=== PATIENT | female | born 1975 | race Caucasian/White ===

== ENCOUNTER 2017-02-15 06:56 | Day surgery (SDC) | payer BC ==
[~2017-02-15 06:56] MED LIST: Lactated Ringers 1,000 ML IV SCH
[2017-02-15] MEDS ORDERED: Propofol 200 MG/20 ML SDV ONE (07:24)
[2017-02-15] MEDS ORDERED: Lidocaine 2% 5 ML SDV ONE (07:24)
[2017-02-15] MEDS ORDERED: fentaNYL 100 MCG/2 ML SDV ONE (07:24)
[2017-02-15] MEDS ORDERED: Midazolam 1 MG/ML 2 ML SDV ONE (07:24)
--- NOTE | 2017-02-15 07:25 | PCM.PREANE ---
Preanesthetic Assessment - Anesthesia/Transfusion/Family Hx Anesthesia History: Prior Anesthesia Without Reaction Family History of Anesthesia Reaction: No Transfusion History: No Prior Transfusion(s) Intubation History: Unknown - Review of Systems General: No Symptoms Pulmonary: No Symptoms Cardiovascular: No Symptoms Gastrointestinal: Other (GERD) Neurological: No Symptoms Other: Reports: None - Physical Assessment Height: 1.52 m Weight: 114.305 kg ASA Class: 2 Mental Status: Alert & Oriented x3 Airway Class: Mallampati = 3 Dentition: Reports: Normal Dentition Thyro-Mental Finger Breadths: 2 Mouth Opening Finger Breadths: 3 ROM/Head Extension: Full Lungs: Clear to Auscultation, Normal Respiratory Effort Cardiovascular: Regular Rate, Regular Rhythm - Lab Values: Laboratory Last Values Urine HCG, Qual NEGATIVE (NEGATIVE) 02/15/17 06:57 - Allergies Allergies/Adverse Reactions: Allergies Allergy/AdvReac Type Severity Reaction Status Date / Time Penicillins Allergy Hives Verified 12/04/13 08:49 - Blood Blood Available: No - Anesthesia Plan Pre-Op Medication Ordered: None - Acknowledgements Anesthesia Type Planned: MAC Pt an Appropriate Candidate for the Planned Anesthesia: Yes Alternatives and Risks of Anesthesia Discussed w Pt/Guardian: Yes Pt/Guardian Understands and Agrees with Anesthesia Plan: Yes PreAnesthesia Questionnaire HEENT History: Reports: None Respiratory History: Reports: Asthma, Other (See Below) Other Respiratory History: "cold induced asthma" Gastrointestinal History: Reports: GERD, Other (See Below) (h/o gastric ulcer) Genitourinary History: Reports: None 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: Reports: Polycystic Ovaries Psychiatric History: Reports: Anxiety, Depression Endocrine/Metabolic History: Reports: Hypothyroidism, Obesity/BMI 30+ - Past Surgical History Head Surgeries/Procedures: Reports: None HEENT Surgical History: Reports: Tonsillectomy GI Surgical History: Reports: Cholecystectomy, EGD (long time ago) Female Surgical History: Reports: D&C - SUBSTANCE USE Smoking Status *Q: Never Smoker Recreational Drug Use History: No - HOME MEDS Home Medications: Home Meds Albuterol/Ipratropium [Take Home: Albuterol/Ipratropium 4 GM Inhaler] 1 - 2 puff INH ASDIRECTED PRN 02/12/17 [History] Levothyroxine Sodium [Unithroid] 50 mcg PO DAILY 02/12/17 [History] Omeprazole 40 mg PO DAILY 02/12/17 [History] buPROPion HCl [Wellbutrin Xl] 300 mg PO DAILY 02/12/17 [History] metFORMIN HCl [Metformin HCl ER] 500 mg PO DAILY 02/12/17 [History] - CURRENT (IN HOUSE) MEDS Current Meds: Current Medications Lactated Ringer's (Ringers, Lactated) 1,000 mls @ 125 mls/hr IV ASDIRECTED PARDEEP
--- NOTE | 2017-02-15 07:58 | PCM.OPNOTE ---
- General Post-Op/Procedure Note Date of Surgery/Procedure: 02/15/17 Operative Procedure(s): Esophagogastroduodenoscopy w/ duodenal and gastric biopsies Pre Op Diagnosis: Persistent epigastric pain with progressive GERD. Hx peptic ulcers Post-Op Diagnosis: Moderate acute gastritis Anesthesia Technique: MAC (ASA II) Primary Surgeon: Marvel Duque Condition: Good Free Text/Narrative:: Dictation [id number] CPT CODE 35840
[2017-02-15] MEDS ORDERED: Lactated Ringers 1,000 ML IV SCH (08:00)
--- NOTE | 2017-02-15 08:02 | PCM.POSTAN ---
POST ANESTHESIA ASSESSMENT - MENTAL STATUS Mental Status: Alert, Oriented - RESPIRATORY Respiratory Status: respiratory rate WNL, Airway Patent, O2 Saturation Stable - CARDIOVASCULAR CV Status: Pulse Rate WNL, Blood Pressure Stable - GASTROINTESTINAL GI Status: No Symptoms - PAIN Pain Score: 0 - POST OP HYDRATION Hydration Status: Adequate & Stable
[2017-02-15 08:17] VITALS: BP 120/46
--- NOTE | 2017-02-15 08:24 | PCM48HPAN ---
Post Anesthesia Note - EVALUATION WITHIN 48HRS OF ANESTHETIC Vital Signs in Normal Range: Yes Patient Participated in Evaluation: Yes Respiratory Function Stable: Yes Airway Patent: Yes Cardiovascular Function Stable: Yes Hydration Status Stable: Yes Pain Control Satisfactory: Yes Nausea and Vomiting Control Satisfactory: Yes Mental Status Recovered: Yes
--- NOTE | 2017-02-15 14:39 | OR ---
SURGEON: Marvel Duque M.D. DATE OF PROCEDURE: 02/15/2017 OPERATION PERFORMED: Esophagogastroduodenoscopy with duodenal and gastric biopsies. ANESTHESIA: MAC. ASA CLASSIFICATION: II. PREOPERATIVE DIAGNOSES: Persistent and progressive heartburn, epigastric pain, and previous history of gastric ulcer. POSTOPERATIVE DIAGNOSIS: Moderate gastritis. DESCRIPTION OF PROCEDURE: The patient was taken to the endoscopy room and positioned on the endoscopy table in the supine position. Time-out was called for appropriate identification of the patient and procedure. Monitored anesthesia care was provided. The bite block was placed between the patient's teeth. The gastroscope was inserted into the mouth and advanced without difficulty through the esophagus and stomach into the duodenum, where examination could be carried out in a retrograde fashion. Duodenum did not show any acute inflammatory changes. Biopsies were nevertheless obtained to rule out any underlying pathology. The gastroscope was withdrawn into the stomach, which does show a moderate acute gastritis. No acute ulcerations were noted. Antral biopsies were obtained to look for the presence of Helicobacter pylori. The gastroscope was then retroflexed to visualize the proximal stomach. No ulcers were noted. There are much less inflammatory changes noted proximally. I did not see any obvious hiatal hernia from below. The gastroscope was then straightened and slowly withdrawn aspirating the stomach as the scope was withdrawn. The esophagus demonstrates minimal change immediately at the GE junction. The remainder of the esophagus shows healthy appearing mucosa with good contractility. The vocal cords were visualized as the scope was withdrawn and noted to move symmetrically. The gastroscope was then removed with the patient having tolerated the procedure well. She was taken to recovery room in stable condition. She will be instructed to take her Prilosec twice a day and a new prescription for Carafate 1 g four times a day. Will be sent to her pharmacy. SHYANN / MONI /[id number]
== END 2017-02-15 08:25 | disposition home or self-care (01) ==
LOC: MW.SDS 06:56
PROVIDERS: ATTEND Surgery
PROC: 0DB98ZX Excision of Duodenum, Via Natural or Artificial Opening Endoscopic, Diagnostic (ICD-10-PCS; principal; 2017-02-15)
PROC: 0DB68ZX Excision of Stomach, Via Natural or Artificial Opening Endoscopic, Diagnostic (ICD-10-PCS; 2017-02-15)
DX: K29.50 Unspecified chronic gastritis without bleeding (principal); K29.80 Duodenitis without bleeding; F41.9 Anxiety disorder, unspecified; K21.9 Gastro-esophageal reflux disease without esophagitis; E03.9 Hypothyroidism, unspecified; E66.01 Morbid (severe) obesity due to excess calories; J45.909 Unspecified asthma, uncomplicated; E28.2 Polycystic ovarian syndrome; F32.9 Major depressive disorder, single episode, unspecified; Z88.0 Allergy status to penicillin; Z79.899 Other long term (current) drug therapy; Z90.49 Acquired absence of other specified parts of digestive tract; Z90.89 Acquired absence of other organs; Z98.890 Other specified postprocedural states; Z68.42 Body mass index [BMI] 45.0-49.9, adult
CPT/HCPCS: 43239; 81025; J2250; J3010; 00740; 88305; 88312; J2704

== ENCOUNTER 2017-02-20 17:38 | Emergency (ER) | payer OTHER, BC ==
--- NOTE | 2017-02-20 17:54 | EDM.PDOC ---
ED HPI GENERAL MEDICAL PROBLEM - General Chief Complaint: Lower Extremity Injury/Pain Stated Complaint: PAIN LT ANKLE Time Seen by Provider: 02/20/17 17:54 Source of Information: Reports: Patient - History of Present Illness INITIAL COMMENTS - FREE TEXT/NARRATIVE: HISTORY AND PHYSICAL: History of present illness: []Patient fell at work she has had foot and ankle pain on the left 8 out of 10 since she presents with her ankle splinted with a magazine and gauze wrap unable to bear weight due to pain limb is neurovascularly intact no head injury or loss of consciousness Patient has IUD in place No fever nausea vomiting chills sweats no chest pain shortness breath headache dizziness palpitation about a urine symptoms Review of systems: As per history of present illness and below otherwise all systems reviewed and negative. Past medical history: As per history of present illness and as reviewed below otherwise noncontributory. Surgical history: As per history of present illness and as reviewed below otherwise noncontributory. Social history: No reported history of drug or alcohol abuse. Family history: As per history of present illness and as reviewed below otherwise noncontributory. Physical exam: HEENT: Atraumatic, normocephalic, pupils reactive, negative for conjunctival pallor or scleral icterus, mucous membranes moist, throat clear, neck supple, nontender, trachea midline. Lungs: Clear to auscultation, breath sounds equal bilaterally, chest nontender. Heart: S1S2, regular, negative for clicks, rubs, or JVD. Abdomen: Soft, nondistended, nontender. Negative for masses or hepatosplenomegaly. Negative for costovertebral tenderness. Pelvis: Stable nontender. Genitourinary: Deferred. Rectal: Deferred. Extremities: Atraumatic, negative for cords or calf pain. Neurovascular unremarkable. Neuro: Awake, alert, oriented. Cranial nerves II through XII unremarkable. Cerebellum unremarkable. Motor and sensory unremarkable throughout. Exam nonfocal. Left lower extremity unaffected above the ankle she does have swelling of both lateral and medial malleolus tender across the dorsum of the foot with mild swelling no redness warmth or open lesion entire limb is neurovascularly intact Diagnostics: []Left ankle 3 views Left foot 3 views Therapeutics: [][place] Splint Crutches nonweightbearing ER referral to orthopedist Impression: []Left foot/ ankle pain Maharaj fracture on the left Definitive disposition and diagnosis as appropriate pending reevaluation and review of above. Left Ankle Pain Score (Numeric/FACES): 7 - Related Data Allergies Allergy/AdvReac Type Severity Reaction Status Date / Time Penicillins Allergy Hives Verified 02/20/17 17:52 Home Meds: Home Meds Albuterol/Ipratropium [Take Home: Albuterol/Ipratropium 4 GM Inhaler] 1 - 2 puff INH ASDIRECTED PRN 02/12/17 [History] Levothyroxine Sodium [Unithroid] 50 mcg PO DAILY 02/12/17 [History] Omeprazole 40 mg PO DAILY 02/12/17 [History] buPROPion HCl [Wellbutrin Xl] 300 mg PO DAILY 02/12/17 [History] metFORMIN HCl [Metformin HCl ER] 500 mg PO BID 02/12/17 [History] Sucralfate 1 gram PO QID 02/20/17 [History] Past Medical History HEENT History: Reports: None Respiratory History: Reports: Asthma, Other (See Below) Other Respiratory History: "cold induced asthma" Gastrointestinal History: Reports: GERD, Other (See Below) Genitourinary History: Reports: None 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 ED EXAM, GENERAL - Physical Exam Exam: See Below Course - Vital Signs Last Recorded V/S: Last Vital Signs Temp 36.4 C 02/20/17 17:50 Pulse 98 02/20/17 17:50 Resp 18 02/20/17 17:50 BP 117/56 L 02/20/17 17:50 Pulse Ox 95 02/20/17 17:50 - Orders/Labs/Meds Orders: Active Orders 24 hr Category Date Time Status Ankle Min 3V Lt [CR] Stat Exams 02/20/17 17:53 Taken Foot Comp Min 3V Lt [CR] Stat Exams 02/20/17 18:04 Taken Departure - Departure Time of Disposition: 18:49 Disposition: Home, Self-Care 01 Condition: Good Clinical Impression: Maharaj fracture - Discharge Information Forms: ED Department Discharge Additional Instructions: Posterior splint Crutches Nonweightbearing ER referral to orthopedist [facility] [address], [address] [place] [address] my orthopedic The following information is given to patients seen in the emergency department who are being discharged to home. This information is to outline your options for follow-up care. We provide all patients seen in our emergency department with a follow-up referral. The need for follow-up, as well as the timing and circumstances, are variable depending upon the specifics of your emergency department visit. If you don't have a primary care physician on staff, we will provide you with a referral. We always advise you to contact your personal physician following an emergency department visit to inform them of the circumstance of the visit and for follow-up with them and/or the need for any referrals to a consulting specialist. The emergency department will also refer you to a specialist when appropriate. This referral assures that you have the opportunity for follow-up care with a specialist. All of these measure are taken in an effort to provide you with optimal care, which includes your follow-up. Under all circumstances we always encourage you to contact your private physician who remains a resource for coordinating your care. When calling for follow-up care, please make the office aware that this follow-up is from your recent emergency room visit. If for any reason you are refused follow-up, please contact the [facility] emergency department at and asked to speak to the emergency department charge nurse. - My Orders Last 24 Hours: My Active Orders 02/20/17 17:53 Ankle Min 3V Lt [CR] Stat 02/20/17 18:04 Foot Comp Min 3V Lt [CR] Stat - Assessment/Plan Last 24 Hours: My Active Orders 02/20/17 17:53 Ankle Min 3V Lt [CR] Stat 02/20/17 18:04 Foot Comp Min 3V Lt [CR] Stat
[2017-02-20] MEDS ORDERED: Acetaminophen/HYDROcodone 325-5 MG Tab PO ONE (18:53)
[2017-02-20 19:38] VITALS: BP 139/61
--- NOTE | 2017-02-21 09:07 | CR ---
EXAM DATE: 02/20/17 PATIENT'S AGE: 41 Patient: MOHAN BARRIGA Facility: [place], [place] Site . Site : 1975 Study: XRay Extremity foot [id number]/26/2017 6:34:04 PM Ordering Physician: Ab Correa Final Report: INDICATION: Trauma. TECHNIQUE: Three views left foot COMPARISON: None FINDINGS: Bones: Displaced transverse fracture involving the base of the 5th metatarsal bone. Joint spaces: Unremarkable. Soft tissues: Unremarkable. IMPRESSION: Displaced transverse fracture involving the base of the 5th metatarsal bone. Dictated by Harris Shaffer MD @ 02/20/2017 7:11:38 PM Dictated by: Harris Shaffer MD @ 02/20/2017 19:11:42 (Electronic Signature) Report Signed by Proxy. HUNTINGTON HOSPITALLeticia
--- NOTE | 2017-02-21 09:08 | CR ---
EXAM DATE: 02/20/17 PATIENT'S AGE: 41 Patient: MOHAN BARRIGA Facility: [place], [place] Site . Site : 1975 Study: XRay Extremity ankle [id number]/26/2017 6:34:25 PM Ordering Physician: Ab Correa Final Report: INDICATION: Pain following trauma TECHNIQUE: Three views left ankle COMPARISON: None FINDINGS: Bones: 3 millimeter avulsion fragment adjacent to the tip of the lateral malleoli. Correlate with point tenderness for acute fracture. Displaced there is wrist fracture involving the base of the 5th metatarsal bone. Joint spaces: Unremarkable. Soft tissues: Lateral ankle edema. IMPRESSION: Transverse displaced fracture involving the base of the 5th metatarsal bone. 3 millimeter avulsion fragment adjacent to the tip of the malleoli with adjacent soft tissue edema. Correlate with point tenderness for acute injury. Dictated by Harris Shaffer MD @ 02/20/2017 7:06:55 PM Dictated by: Harris Shaffer MD @ 02/20/2017 19:07:04 (Electronic Signature) Report Signed by Proxy. YONIS
== END 2017-02-20 19:08 | disposition home or self-care (01) ==
LOC: MW.ED 17:38
DX: S92.352A Displaced fracture of fifth metatarsal bone, left foot, initial encounter for closed fracture (principal); J45.909 Unspecified asthma, uncomplicated; K21.9 Gastro-esophageal reflux disease without esophagitis; F41.9 Anxiety disorder, unspecified; F32.9 Major depressive disorder, single episode, unspecified; E03.9 Hypothyroidism, unspecified; E66.9 Obesity, unspecified; Z90.49 Acquired absence of other specified parts of digestive tract; Z98.890 Other specified postprocedural states; Z88.0 Allergy status to penicillin; Z79.899 Other long term (current) drug therapy; W19.XXXA Unspecified fall, initial encounter; Y92.69 Other specified industrial and construction area as the place of occurrence of the external cause; Y99.0 Civilian activity done for income or pay; Z68.42 Body mass index [BMI] 45.0-49.9, adult
CPT/HCPCS: 73610; 73630; 99283; A9270; 99282

== ENCOUNTER 2020-09-28 11:40 | Emergency (ER) | payer BC ==
[2020-09-28] MEDS ORDERED: Albuterol/Ipratropium 3.0-0.5 MG/3 ML Neb Soln ONE (11:50)
[2020-09-28] MEDS ORDERED: Albuterol/Ipratropium 3.0-0.5 MG/3 ML Neb Soln NEB ONE (11:51)
[2020-09-28] MEDS ORDERED: Albuterol 0.083% 2.5 MG/3 ML Neb Soln NEB ONE (11:52)
[2020-09-28] MEDS ORDERED: methylPREDNISolone Sodium Succinate 125 MG/2 ML SDV IVPUSH ONE (11:53)
[2020-09-28] MEDS ORDERED: Magnesium Sulfate/Water 4 GM in Premix Bag 1 BAG IV ONE (11:53)
[2020-09-28] MEDS ORDERED: Sodium Chloride 0.9% 10 ML Syringe FLUSH PRN (12:01)
[2020-09-28] MEDS ORDERED: Sodium Chloride 0.9% 1,000 ML IV ONE (12:01)
[2020-09-28] MEDS ORDERED: Sodium Chloride 0.9% 2.5 ML Syringe FLUSH PRN (12:01)
[2020-09-28 12:29] LABS: BLOOD UREA NITROGEN,BUN 17 mg/dL (7.0-18.0); CARBON DIOXIDE,CO2 21.6 mmol/L (21.0-32.0); CHLORIDE,CL 99 mmol/L (98-107); GLUCOSE RANDOM 92 mg/dL (74-106); POTASSIUM,K 4.2 mmol/L (3.5-5.1); SODIUM,NA 136 mmol/L (136-145)
--- NOTE | 2020-09-28 12:35 | CR ---
INDICATION: SOB TECHNIQUE: Chest 1 view. COMPARISON: None. FINDINGS: Cardiovascular and mediastinum: Heart size and vasculature are normal in caliber and appearance. Mediastinum is within normal limits. Lungs and pleural space: Lungs are clear. No sign of infiltrate or mass. No sign of pleural effusion. No pneumothorax. Bones and soft tissues: No significant findings. IMPRESSION: Unremarkable chest. Dictated by: Harris Shaffer MD @ 09/28/2020 12:34:08 (Electronically Signed)
[2020-09-28] MEDS ORDERED: LORazepam 2 MG/ML SDV ONE (12:38)
[2020-09-28] MEDS ORDERED: LORazepam 2 MG/ML SDV IVPUSH ONE (12:39)
[2020-09-28] MEDS ORDERED: Cefepime 2 GM in Premix Bag 1 BAG IV ONE ×2 (12:44→14:00)
[2020-09-28] MEDS ORDERED: propofoL 100 ML ONE (12:49)
[2020-09-28] MEDS ORDERED: Rocuronium 100 MG/10 ML Syringe IVPUSH ONE (13:05)
[2020-09-28] MEDS ORDERED: Midazolam 1 MG/ML 2 ML SDV ONE (13:06)
[2020-09-28] MEDS ORDERED: Ondansetron 4 MG/2 ML SDV ONE (13:06)
[2020-09-28] MEDS ORDERED: Morphine 4 MG/ML Syringe ONE (13:09)
[2020-09-28] MEDS ORDERED: Morphine 4 MG/ML Syringe IVPUSH ONE (13:28)
[2020-09-28] MEDS ORDERED: Ondansetron 4 MG/2 ML SDV IVPUSH ONE (13:28)
[2020-09-28] MEDS ORDERED: Etomidate 2 MG/ML 20 ML SDV IVPUSH ONE (13:29)
[2020-09-28] MEDS ORDERED: Propofol 200 MG/20 ML SDV IVPUSH ONE (13:30)
[2020-09-28] MEDS ORDERED: propofoL 100 ML IV SCH (13:30)
[2020-09-28] MEDS ORDERED: Succinylcholine 200 MG/10 ML MDV IV STA (13:31)
[2020-09-28] MEDS ORDERED: Midazolam 1 MG/ML 2 ML SDV IVPUSH ONE (13:32)
--- NOTE | 2020-09-28 13:54 | EDM.PDOC ---
ED HPI GENERAL MEDICAL PROBLEM - General Chief Complaint: Respiratory Problem Stated Complaint: SHORTNESS OF BREATH Time Seen by Provider: 09/28/20 11:53 Source of Information: Reports: Patient History Limitations: Reports: No Limitations, Respiratory Distress - History of Present Illness INITIAL COMMENTS - FREE TEXT/NARRATIVE: HISTORY AND PHYSICAL: History of present illness: Patient is a 45-year-old female who presents emergency room today with concern of difficulty breathing over the past several hours. Patient is brought from the respiratory clinic for acute respiratory distress. Patient has a history of asthma and was diagnosed with COVID-19 1 month ago. Patient has been on antibiotics for concern for possible pneumonia and has had issues with breathing since diagnosed with COVID-19. Patient has been on various doses of steroids, although unknown when her last steroid pack was. Upon arrival, patient is unable to speak as her respiratory rate is going too quickly. HPI is presented from provider at the respiratory clinic who was able to provide patient background information. Review of systems: As per history of present illness and below otherwise all systems reviewed and negative. Past medical history: As per history of present illness and as reviewed below otherwise noncontributory. Surgical history: As per history of present illness and as reviewed below otherwise noncontributory. Social history: See social history for further information Family history: As per history of present illness and as reviewed below otherwise noncontributo ry. Physical exam: General: Patient is alert and in acute respiratory distress. Her respiratory rate is 50 but maintaining oxygen at 100%. Blood pressure is stable. Afebrile. Patient is unable to speak due to respiratory effort. HEENT: Atraumatic, normocephalic, pupils equal and reactive bilaterally, negative for conjunctival pallor or scleral icterus, mucous membranes moist, throat clear, neck supple, nontender, trachea midline. No drooling or trismus noted. No meningeal signs. No hot potato voice noted. Lungs: Diminished lung sounds in bilateral bases, breath sounds equal bilaterally, chest nontender. Patient is unable to speak due to respiratory effort. Use of intercostal retractions and accessory Heart: Exam of heart is limited due to respiratory effort. S1S2, regular rate and rhythm without overt murmur Abdomen: Soft, nondistended, nontender. Negative for masses or hepatosplenomegaly. Negative for costovertebral tenderness. Pelvis: Stable nontender. Genitourinary: Deferred. Rectal: Deferred. Skin: Intact, warm, dry. No lesions or rashes noted. Extremities: Atraumatic, negative for cords or calf pain. Neurovascular unremarkable. Neuro: Awake, alert, oriented. Cranial nerves II through XII unremarkable. Cerebellum unremarkable. Motor and sensory unremarkable throughout. Exam nonfocal. Notes: Dr. Sebastian directly involved in patient care. Upon arrival to the ED, patient is in apparent respiratory distress. She is unable to speak and using accessory muscles for breathing. Three duo nebs initiated upon arrival as IV established with continual cardiac/vitals monit oring. Patient does have a history of asthma and recent COVID-19 infection. Patient does have diminished bilateral lung sounds in the bases. Patient was given magnesium sulfate and continuous albuterol nebulizer. She given a dose of Solu-Medrol. Has no improvement of her breathing continues to have respiratory distress. Bipap initiated with no improvements of respiratory effort. Unable to obtain ABG at this time due to patient status. Patient begins to get fatigued with her respiratory effort, and is unable to maintain her respiratory rate with signs of respiratory failure despite maint aining oxygen 100%. Discussed intubation with patient and she nods and agrees. Patients at bedside and also agreeable. See intubation procedure note below. Unable to obtain an Ang CT as flight is at bedside and patient was not stable prior to get this obtained. Dr. Haro, [facility] ER, consulted on patient accepting of transfer. Flight arranged. Flight at bedside within 15 minutes. Patient remained stable the remainder stay in the ED. Fight at bedside to take patient. Diagnostics: EKG, CBC, CMP, UA, chest x-ray, troponin, D-dimer, lactate, bnp, ABG/VBG, blood cultures x 2 Therapeutics: Duoneb x 3, magnesium sulfate, continuous albuterol nebulizer, solumedrol, Cefepime, Vancomycin, zofran, NS, (RSI medications- etomidate/succinylcholine/versed/propofol bolus/gtt, morphine/rocuronium), Bipap, intubation ventilation, NG tube, indwelling oneill cath Impression: Acute respiratory failure Acute asthma exacerbation, severe Plan: Transfer to [facility] to Dr. Haro via flight Critical care time is exclusive of billable procedures and the time to perform these procedures. Critical care time was used to prevent vital system organ failure and deterioration. Critical care time includes bedside management and high-complexity decision making requiring my highest level of mental preparedness and attention. This includes reviewing the patient's chart and prior medical records, ordering and reviewing interpreting laboratory studies and imaging results, interpretation of vital signs and EKG, pulse oximetry, and discussion with the admitting team along with EMS and nursing staff. Patient presented in acute respiratory distress that required immediate intervention, acute respiratory failure requiring Bipap and intubation and immediate transfer to a higher level of care for additional close monitoring, evaluation, and continuation of treatment CC Time: 60 minutes Definitive disposition and diagnosis as appropriate pending reevaluation and review of above. - Related Data Allergies Allergy/AdvReac Type Severity Reaction Status Date / Time Penicillins Allergy Hives Verified 09/20/20 13:46 Home Meds: Home Meds Albuterol/Ipratropium [Take Home: Albuterol/Ipratropium 4 GM Inhaler] 1 - 2 puff INH ASDIRECTED PRN 02/12/17 [History] Levothyroxine Sodium [Unithroid] 50 mcg PO DAILY 02/12/17 [History] Omeprazole 40 mg PO DAILY 02/12/17 [History] buPROPion HCL [Wellbutrin Xl] 300 mg PO DAILY 02/12/17 [History] metFORMIN HCl [Metformin ER Osmotic] 500 mg PO BID 02/12/17 [History] Sucralfate 1 gram PO QID 02/20/17 [History] Past Medical History HEENT History: Reports: None Respiratory History: Reports: Asthma, Other (See Below) Other Respiratory History: "cold induced asthma" Gastrointestinal History: Reports: GERD, Other (See Below) Genitourinary History: Reports: None [employer] History: Reports: Polycystic Ovaries Psychiatric History: Reports: Anxiety, Depression Endocrine/Metabolic History: Reports: Hypothyroidism, Obesity/BMI 30+ - Infectious Disease History Infectious Disease History: Reports: Chicken Pox - Past Surgical History Head Surgeries/Procedures: Reports: None HEENT Surgical History: Reports: Tonsillectomy GI Surgical History: Reports: Cholecystectomy, EGD Female Surgical History: Reports: D&C Social & Family History - Family History Family Medical History: No Pertinent Family History - Tobacco Use Tobacco Use Status *Q: Never Tobacco User - Recreational Drug Use Recreational Drug Use: No ED ROS GENERAL - Review of Systems Review Of Systems: Comprehensive ROS is negative, except as noted in HPI. ED EXAM, GENERAL - Physical Exam Exam: See Below (see dictation) ED RESPIRATORY PROCEDURES - Endotracheal Intubation Time of Intubation: 13:30 ET Intubation Indication: Respiratory Failure Preparation: Suction, Balloon Tested, BVM Set Up, Difficult Airway Equip Airway Assessment: Obese, Large Tongue Pre-Oxygenation: Assisted with BVM, 100% FiO2 Anesthesia Meds: Etomidate, Midazolam, Propofol, Rocuronium, Succinylcholine Placement: Orotracheal, Cuffed, Uncomplicated Placement Cords Visualized: Yes ETT Size In mm: 7.5 Number of Attempts: 1 Confirmed By: CO2 Indicator, Bilateral Breath Sounds, Chest Xray Tube Secured By: Other (secured by RT and provider) Course - Vital Signs Last Recorded V/S: Last Vital Signs Temp 96 F L 09/28/20 12:04 Pulse 111 H 09/28/20 13:35 Resp 22 H 09/28/20 13:35 BP 131/58 L 09/28/20 13:35 Pulse Ox 100 09/28/20 13:35 - Orders/Labs/Meds Orders: Active Orders 24 hr Category Date Time Status Insert Oneill Catheter [Insert Urinary Catheter] [OM.PC] Care 09/28/20 13:30 Ordered Q24H CULTURE BLOOD [BC] Stat Lab 09/28/20 13:36 Results CULTURE BLOOD [BC] Stat Lab 09/28/20 13:43 Received Blood Culture x2 Reflex Set [OM.PC] Stat Oth 09/28/20 12:43 Ordered Desired Level of Sedation (RASS) [AST] Click to Edit Oth 09/28/20 13:29 Ordered Saline Lock Insert [OM.PC] Stat Ot 09/28/20 12:01 Ordered Labs: Laboratory Tests 09/28/20 09/28/20 09/28/20 Range/Units 11:40 11:40 11:40 WBC 17.39 H (4.0-11.0) K/uL RBC 4.63 (4.30-5.90) M/uL Hgb 14.7 (12.0-16.0) g/dL Hct 43.5 (36.0-46.0) % MCV 94.0 (80.0-98.0) fL MCH 31.7 (27.0-32.0) pg MCHC 33.8 (31.0-37.0) g/dL RDW Std Deviation 45.9 (28.0-62.0) fl RDW Coeff of Maru 13 (11.0-15.0) % Plt Count 396 (150-400) K/uL MPV 9.70 (7.40-12.00) fL Neut % (Auto) 61.1 (48.0-80.0) % Lymph % (Auto) 29.8 (16.0-40.0) % Ralls % (Auto) 6.4 (0.0-15.0) % Eos % (Auto) 2.5 (0.0-7.0) % Baso % (Auto) 0.2 (0.0-1.5) % Neut # (Auto) 10.6 H (1.4-5.7) K/uL Lymph # (Auto) 5.2 H (0.6-2.4) K/uL Ralls # (Auto) 1.1 H (0.0-0.8) K/uL Eos # (Auto) 0.4 (0.0-0.7) K/uL Baso # (Auto) 0.0 (0.0-0.1) K/uL Nucleated RBC % 0.0 /100WBC Nucleated RBCs # 0 K/uL INR APTT (18.6-31.3) SEC D-Dimer, Quantitative 0.56 H (0.0-0.50) mg/L FEU ABG pH (7.35-7.45) ABG pCO2 (35-45) mmHG ABG pO2 (75-100) mmHG ABG HCO3 (22-26) mEq/L ABG Total CO2 ABG Base Excess (-2.0-2.0) VBG pH (7.31-7.41) VBG pCO2 (35-45) mmHG VBG pO2 (30-40) mmHG VBG HCO3 (22-30) mEq/L VBG Total CO2 (41-51) mmol/L VBG Base Excess (-3.0-3.0) Lactate (0.20-2.00) mmol/L Sodium 136 (136-145) mmol/L Potassium 4.2 (3.5-5.1) mmol/L Chloride 99 (98-107) mmol/L Carbon Dioxide 21.6 (21.0-32.0) mmol/L BUN 17 (7.0-18.0) mg/dL Creatinine 0.9 (0.6-1.0) mg/dL Est Cr Clr Drug Dosing 56.70 mL/min Estimated GFR (MDRD) > 60.0 ml/min Glucose 92 (74-106) mg/dL Calcium 9.7 (8.5-10.1) mg/dL Total Bilirubin 0.2 (0.2-1.0) mg/dL AST 18 (15-37) IU/L ALT 40 (14-63) IU/L Alkaline Phosphatase 89 (46-116) U/L Troponin I < 0.050 (0.000-0.056) ng/mL B-Natriuretic Peptide (<100) PG/ML Total Protein 7.5 (6.4-8.2) g/dL Albumin 3.5 (3.4-5.0) g/dL Globulin 4.0 (2.6-4.0) g/dL Albumin/Globulin Ratio 0.9 (0.9-1.6) Urine Color Urine Appearance Urine pH (5.0-8.0) Ur Specific Dewart (1.001-1.035) Urine Protein (NEGATIVE) mg/dL Urine Glucose (UA) (NEGATIVE) mg/dL Urine Ketones (NEGATIVE) mg/dL Urine Occult Blood (NEGATIVE) Urine Nitrite (NEGATIVE) Urine Bilirubin (NEGATIVE) Urine Urobilinogen (<2.0) EU/dL Ur Leukocyte Esterase (NEGATIVE) 09/28/20 09/28/20 09/28/20 Range/Units 11:40 11:40 11:40 WBC (4.0-11.0) K/uL RBC (4.30-5.90) M/uL Hgb (12.0-16.0) g/dL Hct (36.0-46.0) % MCV (80.0-98.0) fL MCH (27.0-32.0) pg MCHC (31.0-37.0) g/dL RDW Std Deviation (28.0-62.0) fl RDW Coeff of Maru (11.0-15.0) % Plt Count (150-400) K/uL MPV (7.40-12.00) fL Neut % (Auto) (48.0-80.0) % Lymph % (Auto) (16.0-40.0) % Ralls % (Auto) (0.0-15.0) % Eos % (Auto) (0.0-7.0) % Baso % (Auto) (0.0-1.5) % Neut # (Auto) (1.4-5.7) K/uL Lymph # (Auto) (0.6-2.4) K/uL Ralls # (Auto) (0.0-0.8) K/uL Eos # (Auto) (0.0-0.7) K/uL Baso # (Auto) (0.0-0.1) K/uL Nucleated RBC % /100WBC Nucleated RBCs # K/uL INR 0.97 APTT 28.5 (18.6-31.3) SEC D-Dimer, Quantitative (0.0-0.50) mg/L FEU ABG pH (7.35-7.45) ABG pCO2 (35-45) mmHG ABG pO2 (75-100) mmHG ABG HCO3 (22-26) mEq/L ABG Total CO2 ABG Base Excess (-2.0-2.0) VBG pH (7.31-7.41) VBG pCO2 (35-45) mmHG VBG pO2 (30-40) mmHG VBG HCO3 (22-30) mEq/L VBG Total CO2 (41-51) mmol/L VBG Base Excess (-3.0-3.0) Lactate (0.20-2.00) mmol/L Sodium (136-145) mmol/L Potassium (3.5-5.1) mmol/L Chloride (98-107) mmol/L Carbon Dioxide (21.0-32.0) mmol/L BUN (7.0-18.0) mg/dL Creatinine (0.6-1.0) mg/dL Est Cr Clr Drug Dosing mL/min Estimated GFR (MDRD) ml/min Glucose (74-106) mg/dL Calcium (8.5-10.1) mg/dL Total Bilirubin (0.2-1.0) mg/dL AST (15-37) IU/L ALT (14-63) IU/L Alkaline Phosphatase (46-116) U/L Troponin I (0.000-0.056) ng/mL B-Natriuretic Peptide 4 (<100) PG/ML Total Protein (6.4-8.2) g/dL Albumin (3.4-5.0) g/dL Globulin (2.6-4.0) g/dL Albumin/Globulin Ratio (0.9-1.6) Urine Color Urine Appearance Urine pH (5.0-8.0) Ur Specific Dewart (1.001-1.035) Urine Protein (NEGATIVE) mg/dL Urine Glucose (UA) (NEGATIVE) mg/dL Urine Ketones (NEGATIVE) mg/dL Urine Occult Blood (NEGATIVE) Urine Nitrite (NEGATIVE) Urine Bilirubin (NEGATIVE) Urine Urobilinogen (<2.0) EU/dL Ur Leukocyte Esterase (NEGATIVE) 09/28/20 09/28/20 09/28/20 Range/Units 13:26 13:35 13:43 WBC (4.0-11.0) K/uL RBC (4.30-5.90) M/uL Hgb (12.0-16.0) g/dL Hct (36.0-46.0) % MCV (80.0-98.0) fL MCH (27.0-32.0) pg MCHC (31.0-37.0) g/dL RDW Std Deviation (28.0-62.0) fl RDW Coeff of Maru (11.0-15.0) % Plt Count (150-400) K/uL MPV (7.40-12.00) fL Neut % (Auto) (48.0-80.0) % Lymph % (Auto) (16.0-40.0) % Ralls % (Auto) (0.0-15.0) % Eos % (Auto) (0.0-7.0) % Baso % (Auto) (0.0-1.5) % Neut # (Auto) (1.4-5.7) K/uL Lymph # (Auto) (0.6-2.4) K/uL Ralls # (Auto) (0.0-0.8) K/uL Eos # (Auto) (0.0-0.7) K/uL Baso # (Auto) (0.0-0.1) K/uL Nucleated RBC % /100WBC Nucleated RBCs # K/uL INR APTT (18.6-31.3) SEC D-Dimer, Quantitative (0.0-0.50) mg/L FEU ABG pH 7.415 (7.35-7.45) ABG pCO2 34 L (35-45) mmHG ABG pO2 174 H (75-100) mmHG ABG HCO3 22 (22-26) mEq/L ABG Total CO2 19.3 ABG Base Excess -2.3 L (-2.0-2.0) VBG pH 7.38 (7.31-7.41) VBG pCO2 37 (35-45) mmHG VBG pO2 57 H (30-40) mmHG VBG HCO3 22 (22-30) mEq/L VBG Total CO2 20 L (41-51) mmol/L VBG Base Excess -2.5 (-3.0-3.0) Lactate (0.20-2.00) mmol/L Sodium (136-145) mmol/L Potassium (3.5-5.1) mmol/L Chloride (98-107) mmol/L Carbon Dioxide (21.0-32.0) mmol/L BUN (7.0-18.0) mg/dL Creatinine (0.6-1.0) mg/dL Est Cr Clr Drug Dosing mL/min Estimated GFR (MDRD) ml/min Glucose (74-106) mg/dL Calcium (8.5-10.1) mg/dL Total Bilirubin (0.2-1.0) mg/dL AST (15-37) IU/L ALT (14-63) IU/L Alkaline Phosphatase (46-116) U/L Troponin I (0.000-0.056) ng/mL B-Natriuretic Peptide (<100) PG/ML Total Protein (6.4-8.2) g/dL Albumin (3.4-5.0) g/dL Globulin (2.6-4.0) g/dL Albumin/Globulin Ratio (0.9-1.6) Urine Color YELLOW Urine Appearance CLEAR Urine pH 5.5 (5.0-8.0) Ur Specific [place] >= 1.030 (1.001-1.035) Urine Protein NEGATIVE (NEGATIVE) mg/dL Urine Glucose (UA) NEGATIVE (NEGATIVE) mg/dL Urine Ketones 15 H (NEGATIVE) mg/dL Urine Occult Blood NEGATIVE (NEGATIVE) Urine Nitrite NEGATIVE (NEGATIVE) Urine Bilirubin NEGATIVE (NEGATIVE) Urine Urobilinogen 0.2 (<2.0) EU/dL Ur Leukocyte Esterase NEGATIVE (NEGATIVE) 09/28/20 Range/Units 13:43 WBC (4.0-11.0) K/uL RBC (4.30-5.90) M/uL Hgb (12.0-16.0) g/dL Hct (36.0-46.0) % MCV (80.0-98.0) fL MCH (27.0-32.0) pg MCHC (31.0-37.0) g/dL RDW Std Deviation (28.0-62.0) fl RDW Coeff of Maru (11.0-15.0) % Plt Count (150-400) K/uL MPV (7.40-12.00) fL Neut % (Auto) (48.0-80.0) % Lymph % (Auto) (16.0-40.0) % Ralls % (Auto) (0.0-15.0) % Eos % (Auto) (0.0-7.0) % Baso % (Auto) (0.0-1.5) % Neut # (Auto) (1.4-5.7) K/uL Lymph # (Auto) (0.6-2.4) K/uL Ralls # (Auto) (0.0-0.8) K/uL Eos # (Auto) (0.0-0.7) K/uL Baso # (Auto) (0.0-0.1) K/uL Nucleated RBC % /100WBC Nucleated RBCs # K/uL INR APTT (18.6-31.3) SEC D-Dimer, Quantitative (0.0-0.50) mg/L FEU ABG pH (7.35-7.45) ABG pCO2 (35-45) mmHG ABG pO2 (75-100) mmHG ABG HCO3 (22-26) mEq/L ABG Total CO2 ABG Base Excess (-2.0-2.0) VBG pH (7.31-7.41) VBG pCO2 (35-45) mmHG VBG pO2 (30-40) mmHG VBG HCO3 (22-30) mEq/L VBG Total CO2 (41-51) mmol/L VBG Base Excess (-3.0-3.0) Lactate 3.6 H* (0.20-2.00) mmol/L Sodium (136-145) mmol/L Potassium (3.5-5.1) mmol/L Chloride (98-107) mmol/L Carbon Dioxide (21.0-32.0) mmol/L BUN (7.0-18.0) mg/dL Creatinine (0.6-1.0) mg/dL Est Cr Clr Drug Dosing mL/min Estimated GFR (MDRD) ml/min Glucose (74-106) mg/dL Calcium (8.5-10.1) mg/dL Total Bilirubin (0.2-1.0) mg/dL AST (15-37) IU/L ALT (14-63) IU/L Alkaline Phosphatase (46-116) U/L Troponin I (0.000-0.056) ng/mL B-Natriuretic Peptide (<100) PG/ML Total Protein (6.4-8.2) g/dL Albumin (3.4-5.0) g/dL Globulin (2.6-4.0) g/dL Albumin/Globulin Ratio (0.9-1.6) Urine Color Urine Appearance Urine pH (5.0-8.0) Ur Specific Dewart (1.001-1.035) Urine Protein (NEGATIVE) mg/dL Urine Glucose (UA) (NEGATIVE) mg/dL Urine Ketones (NEGATIVE) mg/dL Urine Occult Blood (NEGATIVE) Urine Nitrite (NEGATIVE) Urine Bilirubin (NEGATIVE) Urine Urobilinogen (<2.0) EU/dL Ur Leukocyte Esterase (NEGATIVE) Meds: Medications Discontinued Medications Generic Name Dose Route Start Last Admin Trade Name Freq PRN Reason Stop Dose Admin Albuterol 10 mg 09/28/20 11:52 09/28/20 11:57 Proventil Neb Soln NEB 09/28/20 11:53 10 mg ONETIME ONE Administration Albuterol/Ipratropium 9 ml 09/28/20 11:51 09/28/20 12:02 Duoneb 3.0-0.5 Mg/3 Ml NEB 09/28/20 11:52 9 ml ONETIME ONE Administration Albuterol/Ipratropium Confirm 09/28/20 11:50 09/28/20 12:01 Duoneb 3.0-0.5 Mg/3 Ml Administered 09/28/20 11:51 Not Given Dose 9 ml .ROUTE .STK-MED ONE Etomidate 30 mg 09/28/20 13:29 09/28/20 14:01 Amidate IVPUSH 09/28/20 13:30 30 mg ONETIME ONE Administration Magnesium Sulfate 4 gm/ Premix 100 mls @ 25 mls/hr 09/28/20 11:53 09/28/20 11:59 IV 09/28/20 15:52 400 mls/hr ONETIME ONE Administration Sodium Chloride 1,000 mls @ 999 mls/hr 09/28/20 12:01 09/28/20 12:15 Normal Saline IV 09/28/20 13:01 999 mls/hr BOLUS ONE Administration Cefepime HCl 2 gm/ Premix 50 mls @ 100 mls/hr 09/28/20 12:44 09/28/20 13:55 IV 09/28/20 13:13 100 mls/hr ONETIME ONE Administration Propofol Confirm 09/28/20 12:49 09/28/20 14:00 Diprivan 100 Ml Administered 09/28/20 12:50 Not Given Dose 100 mls @ as directed .ROUTE .STK-MED ONE Propofol 100 mls @ 22.045 mls/hr 09/28/20 13:30 09/28/20 14:13 Diprivan 100 Ml IV 30 mcg/kg/min TITRATE PARDEEP 22.045 mls/hr Administration Protocol 30 MCG/KG/MIN Cefepime HCl 2 gm/ Premix 50 mls @ 100 mls/hr 09/28/20 14:00 09/28/20 14:07 IV 09/28/20 14:29 Not Given ONETIME ONE Lorazepam 1 mg 09/28/20 12:39 09/28/20 12:42 Ativan IVPUSH 09/28/20 12:40 1 mg ONETIME ONE Administration Lorazepam Confirm 09/28/20 12:38 09/28/20 12:42 Ativan Administered 09/28/20 12:39 Not Given Dose 2 mg .ROUTE .STK-MED ONE Methylprednisolone Sodium Succinate 125 mg 09/28/20 11:53 09/28/20 11:59 Solu-Medrol IVPUSH 09/28/20 11:54 125 mg ONETIME ONE Administration Midazolam HCl Confirm 09/28/20 13:06 09/28/20 14:00 Versed 1 Mg/Ml Administered 09/28/20 13:07 Not Given Dose 4 mg .ROUTE .STK-MED ONE Midazolam HCl 4 mg 09/28/20 13:32 09/28/20 14:11 Versed 1 Mg/Ml IVPUSH 09/28/20 13:33 4 mg ONETIME ONE Administration Morphine Sulfate Confirm 09/28/20 13:09 09/28/20 14:00 Morphine Administered 09/28/20 13:10 Not Given Dose 4 mg .ROUTE .STK-MED ONE Morphine Sulfate 4 mg 09/28/20 13:28 09/28/20 14:02 Morphine IVPUSH 09/28/20 13:29 4 mg ONETIME ONE Administration Ondansetron HCl Confirm 09/28/20 13:06 09/28/20 14:00 Zofran Administered 09/28/20 13:07 Not Given Dose 4 mg .ROUTE .STK-MED ONE Ondansetron HCl 4 mg 09/28/20 13:28 09/28/20 14:02 Zofran IVPUSH 09/28/20 13:29 4 mg ONETIME ONE Administration Propofol 120 mg 09/28/20 13:30 09/28/20 14:12 Diprivan 20 Ml IVPUSH 09/28/20 13:31 120 mg ONETIME ONE Administration Rocuronium [place] 100 mg 09/28/20 13:05 09/28/20 13:05 Zemuron IVPUSH 09/28/20 13:06 100 mg ONETIME ONE Administration Sodium Chloride 10 ml 09/28/20 12:01 09/28/20 12:15 Saline Flush FLUSH 10 ml ASDIRECTED PRN Administration Keep Vein Open Sodium Chloride 2.5 ml 09/28/20 12:01 09/28/20 12:15 Saline Flush FLUSH 2.5 ml ASDIRECTED PRN Administration Keep Vein Open Succinylcholine Chloride 100 mg 09/28/20 13:31 09/28/20 14:10 Quelicin IV 09/28/20 13:32 100 mg STAT STA Administration Departure - Departure Time of Disposition: 14:00 Disposition: DC/Tfer to [facility] 02 Clinical Impression: Acute respiratory failure Qualifiers: Respiratory failure complication: unspecified whether with hypoxia or hypercapnia Qualified Code(s): J96.00 - Acute respiratory failure, unspecified whether with hypoxia or hypercapnia Asthma exacerbation Qualifiers: Asthma severity: severe Asthma persistence: persistent Qualified Code(s): J45.51 - Severe persistent asthma with (acute) exacerbation - Discharge Information Referrals: PCP,None [Primary Care Provider] - Forms: ED Department Discharge Sepsis Event Note (ED) - Evaluation Sepsis Screening Result: No Definite Risk - Focused Exam Vital Signs: Vital Signs Temp Pulse Resp BP Pulse Ox 09/28/20 13:35 111 H 22 H 131/58 L 100 09/28/20 12:25 96 156/72 H 99 09/28/20 12:04 96 F L 108 H 16 110/39 L 99 - My Orders Last 24 Hours: My Active Orders 09/28/20 12:01 Saline Lock Insert [OM.PC] Stat 09/28/20 12:43 Blood Culture x2 Reflex Set [OM.PC] Stat 09/28/20 13:29 Desired Level of Sedation (RASS) [AST] Click to Edit 09/28/20 13:30 Insert Oneill Catheter [Insert Urinary Catheter] [OM.PC] Q24H 09/28/20 13:36 CULTURE BLOOD [BC] Stat 09/28/20 13:43 CULTURE BLOOD [BC] Stat - Assessment/Plan Last 24 Hours: My Active Orders 09/28/20 12:01 Saline Lock Insert [OM.PC] Stat 09/28/20 12:43 Blood Culture x2 Reflex Set [OM.PC] Stat 09/28/20 13:29 Desired Level of Sedation (RASS) [AST] Click to Edit 09/28/20 13:30 Insert Oneill Catheter [Insert Urinary Catheter] [OM.PC] Q24H 09/28/20 13:36 CULTURE BLOOD [BC] Stat 09/28/20 13:43 CULTURE BLOOD [BC] Stat
--- NOTE | 2020-09-28 15:20 | CR ---
Indication: Post intubation Technique: Chest 1 view Comparison: 09/28/2020 at 12:17 p.m. Findings/Impression: An endotracheal tube with the tip approximately 3 cm above the ca. A nasogastric tube with the tip in the stomach. An expiratory study. Evolving atelectasis or infiltrate in the left base. Increased central interstitial opacities are at least partially related to compressive changes. No gross pleural effusions. No pneumothorax seen. Mildly increased cardiomediastinal prominence could be related to differences in technique. Stable osseous structures. Cholecystectomy clips. Dictated by Roland Brower MD @ Sep 28 2020 3:14PM Signed by Dr. Roland Brower @ Sep 28 2020 3:17PM
[2020-09-28 15:33] VITALS: BP 131/58; PULSE 111
== END 2020-09-28 14:15 ==
LOC: MW.ED 11:40
DX: J96.00 Acute respiratory failure, unspecified whether with hypoxia or hypercapnia (principal); J45.51 Severe persistent asthma with (acute) exacerbation; K21.9 Gastro-esophageal reflux disease without esophagitis; E03.9 Hypothyroidism, unspecified; E66.9 Obesity, unspecified; Z68.43 Body mass index [BMI] 50.0-59.9, adult; Z88.0 Allergy status to penicillin
CPT/HCPCS: 31500; 36415; 36600; 43752; 51702; 71045; 80053; 81003; 82803; 83605; 83880; 84484; 85025; 85379; 85610; 85730; 87040; 94002; 94660; 96365; 96367; 96374; 96375; 99285; J0330; J0692; J2060; J2250; J2270; J2405; J2704; J2930; J3475; J3490; J7030; 99291; J7620-GY

== ENCOUNTER 2022-04-09 15:05 | Emergency (ER) | payer BC ==
[2022-04-09] MEDS ORDERED: Albuterol/Ipratropium 3.0-0.5 MG/3 ML Neb Soln NEB ONE (15:08)
[2022-04-09] MEDS ORDERED: methylPREDNISolone Sodium Succinate 125 MG/2 ML SDV IVPUSH ONE (15:09)
[2022-04-09] MEDS ORDERED: LORazepam 2 MG/ML Syringe IVPUSH STA (15:46)
[2022-04-09] MEDS ORDERED: LORazepam 2 MG/ML SDV ONE (15:52)
[2022-04-09] MEDS ORDERED: Albuterol/Ipratropium 3.0-0.5 MG/3 ML Neb Soln NEB STA (15:53)
[2022-04-09] MEDS ORDERED: LORazepam 2 MG/ML SDV IVPUSH ONE (15:55)
[2022-04-09 16:16] LABS: BLOOD UREA NITROGEN,BUN 14 mg/dL (7.0-18.0); CARBON DIOXIDE,CO2 26.2 mmol/L (21.0-32.0); CHLORIDE,CL 100 mmol/L (98-107); ESTIMATED GFR 80 mL/min (>60); GLUCOSE RANDOM 115 mg/dL (74-106); POTASSIUM,K 4.1 mmol/L (3.5-5.1); SODIUM,NA 136 mmol/L (136-145)
[2022-04-09] MEDS ORDERED: Azithromycin 250 MG Tab PO STA (16:38)
[2022-04-09 17:02] VITALS: BP 129/78; PULSE 89
== END 2022-04-09 17:00 | disposition home or self-care (01) ==
LOC: MW.ED 15:05
DX: J45.909 Unspecified asthma, uncomplicated (principal); K21.9 Gastro-esophageal reflux disease without esophagitis; E03.9 Hypothyroidism, unspecified; E66.9 Obesity, unspecified; Z68.30 Body mass index [BMI] 30.0-30.9, adult; Z88.0 Allergy status to penicillin; Z79.899 Other long term (current) drug therapy; Z20.822 Contact with and (suspected) exposure to COVID-19
CPT/HCPCS: 36415; 71045; 80053; 85025; 87635; 96374; 96375; 99285; A9270; J2060; J2930; J7620-GY; U0002

== ENCOUNTER 2022-09-06 06:38 | Day surgery (SDC) | payer BC ==
[~2022-09-06 06:38] MED LIST changes: +Sodium Chloride 0.9% 10 ML Syringe FLUSH PRN; +Sodium Chloride 0.9% 2.5 ML Syringe FLUSH PRN; +Sodium Chloride 0.9% 20 ML SDV IV PRN
[2022-09-06] MEDS ORDERED: Propofol 200 MG/20 ML SDV ONE ×2 (07:29→08:25)
[2022-09-06 09:01] VITALS: BP 129/76; PULSE 84
== END 2022-09-06 09:30 | disposition home or self-care (01) ==
LOC: MW.SDS 06:38
PROVIDERS: ATTEND Surgery
DX: Z12.11 Encounter for screening for malignant neoplasm of colon (principal); F41.9 Anxiety disorder, unspecified; F32.A Depression, unspecified; J45.909 Unspecified asthma, uncomplicated; I50.9 Heart failure, unspecified; E66.01 Morbid (severe) obesity due to excess calories; K21.9 Gastro-esophageal reflux disease without esophagitis; E03.9 Hypothyroidism, unspecified; G47.33 Obstructive sleep apnea (adult) (pediatric); E55.9 Vitamin D deficiency, unspecified; F39 Unspecified mood [affective] disorder; R73.03 Prediabetes; Z80.0 Family history of malignant neoplasm of digestive organs; Z88.0 Allergy status to penicillin; Z68.43 Body mass index [BMI] 50.0-59.9, adult; Z79.899 Other long term (current) drug therapy; Z79.84 Long term (current) use of oral hypoglycemic drugs; Z79.890 Hormone replacement therapy; Z98.890 Other specified postprocedural states; Z68.44 Body mass index [BMI] 60.0-69.9, adult; Z86.16 Personal history of COVID-19
CPT/HCPCS: 45378; 81025; J2704; J7120

== ENCOUNTER 2022-12-12 15:17 | Inpatient (IN) | payer BC ==
[2022-12-12] MEDS ORDERED: Albuterol/Ipratropium 3.0-0.5 MG/3 ML Neb Soln NEB STA ×2 (15:20→15:41)
[2022-12-12] MEDS ORDERED: Racepinephrine 2.25% 0.5 ML Neb Soln NEB STA (15:22)
[2022-12-12] MEDS ORDERED: Sodium Chloride 0.9% Inhalation Soln 3 ML Neb INH PRN (15:22)
[2022-12-12] MEDS ORDERED: Racepinephrine 2.25% 0.5 ML Neb Soln ONE ×2 (15:23)
[2022-12-12] MEDS ORDERED: Dexamethasone 10 MG/ML SDV IVPUSH ONE (15:25)
[2022-12-12] MEDS ORDERED: Magnesium Sulfate/Water 2 GM in Premix Bag 1 BAG IV ONE (15:30)
[2022-12-12 15:34] LABS: BASOPHILS PERCENT AUTO 0.2 % (0.0-1.5); EOSINOPHILS ABSOLUTE AUTO 0.2 K/uL (0.0-0.7); EOSINOPHILS PERCENT AUTO 1.7 % (0.0-7.0); HEMATOCRIT 36.1 % (36.0-46.0); HEMOGLOBIN 11.9 g/dL (12.0-16.0); LYMPHOCYTES PERCENT AUTO 25.2 % (16.0-40.0); MEAN CORPUSCULAR HEMOGLOBIN 28.3 pg (27.0-32.0); MEAN CORPUSCULAR VOLUME 85.7 fL (80.0-98.0); MONOCYTES ABSOLUTE AUTO 0.6 K/uL (0.0-0.8); MONOCYTES PERCENT AUTO 4.8 % (0.0-15.0); NEUTROPHILS PERCENT AUTO 68.1 % (48.0-80.0); NRBC ABSOLUTE 0 K/uL; PLATELET COUNT,PLT 367 K/uL (150-400); RED BLOOD CELL COUNT 4.21 M/uL (4.30-5.90); WHITE BLOOD CELL COUNT,WBC 11.76 K/uL (4.0-11.0)
[2022-12-12 15:56] LABS: A/G RATIO 0.9 (0.9-1.6); ALBUMIN 3.5 g/dL (3.4-5.0); BILIRUBIN TOTAL 0.1 mg/dL (0.2-1.0); CARBON DIOXIDE,CO2 19.7 mmol/L (21.0-32.0); EST CRCL DRUG DOSING (CG) 49.95 mL/min; POTASSIUM,K 3.8 mmol/L (3.5-5.1); PROTEIN TOTAL,TP 7.4 g/dL (6.4-8.2)
[2022-12-12 16:26] LABS: BASE EXCESS VENOUS 0.5 (-2.0-3.0); PH,VENOUS 7.44 (7.31-7.41)
[2022-12-12] MEDS ORDERED: Temazepam 15 MG Cap PO PRN (19:20)
[2022-12-12] MEDS ORDERED: Ondansetron 4 MG/2 ML SDV IVPUSH PRN (19:20)
[2022-12-12] MEDS ORDERED: Polyethylene Glycol 3350 Powder 17 GM Packet PO PRN (19:20)
[2022-12-12] MEDS ORDERED: LORazepam 2 MG/ML SDV IM PRN (19:20)
[2022-12-12] MEDS ORDERED: Acetaminophen 325 MG Tab PO PRN (19:20)
[2022-12-12] MEDS ORDERED: Ibuprofen 400 MG Tab PO PRN (19:20)
[2022-12-12] MEDS ORDERED: Ondansetron 4 MG Tab.DIS PO PRN (19:20)
[2022-12-12] MEDS ORDERED: Zolpidem Tartrate 5 MG Tablet PO PRN (19:24)
[2022-12-12] MEDS ORDERED: IVABRADINE HCL 5 MG PO SCH (21:00)
[2022-12-12] MEDS: methylPREDNISolone Sodium Succinate 40 MG/1 ML SDV IVPUSH SCH (21:48)
[2022-12-13] MEDS: Albuterol 0.083% 2.5 MG/3 ML Neb Soln NEB PRN ×5 (01:25→20:55)
[2022-12-13] MEDS: methylPREDNISolone Sodium Succinate 40 MG/1 ML SDV IVPUSH SCH ×3 (04:46→21:13)
[2022-12-13 05:29] LABS: HEMATOCRIT 37.1 % (36.0-46.0); HEMOGLOBIN 11.8 g/dL (12.0-16.0); LYMPHOCYTES ABSOLUTE AUTO 0.9 K/uL (0.6-2.4); LYMPHOCYTES PERCENT AUTO 8.1 % (16.0-40.0); MEAN CORPUSCULAR HEMOGLOBIN 27.8 pg (27.0-32.0); MEAN CORPUSCULAR HGB CONC 31.8 g/dL (31.0-37.0); MEAN CORPUSCULAR VOLUME 87.5 fL (80.0-98.0); MONOCYTES ABSOLUTE AUTO 0.1 K/uL (0.0-0.8); MONOCYTES PERCENT AUTO 1.1 % (0.0-15.0); NEUTROPHILS ABSOLUTE AUTO 10.4 K/uL (1.4-5.7); NEUTROPHILS PERCENT AUTO 90.8 % (48.0-80.0); NRBC ABSOLUTE 0 K/uL; PLATELET COUNT,PLT 385 K/uL (150-400); RED BLOOD CELL COUNT 4.24 M/uL (4.30-5.90); WHITE BLOOD CELL COUNT,WBC 11.43 K/uL (4.0-11.0)
[2022-12-13 05:49] LABS: CALCIUM 8.8 mg/dL (8.5-10.1); CARBON DIOXIDE,CO2 27.2 mmol/L (21.0-32.0); CREATININE 0.8 mg/dL (0.6-1.0); EST CRCL DRUG DOSING (CG) 78.23 mL/min; MAGNESIUM 2.3 mg/dL (1.8-2.4); POTASSIUM,K 4.6 mmol/L (3.5-5.1)
[2022-12-13] MEDS: Omeprazole 20 MG Cap.CR PO SCH (08:07)
[2022-12-13] MEDS: DULoxetine 60 MG Cap PO SCH (08:07)
[2022-12-13] MEDS: Levothyroxine 88 MCG Tab PO SCH (08:07)
[2022-12-13] MEDS: Furosemide 40 MG Tab PO SCH (08:08)
[2022-12-13] MEDS: buPROPion 150 MG Tab.ER PO SCH (08:08)
[2022-12-13] MEDS: Enoxaparin 40 MG/0.4 ML Syringe SUBCUT SCH (08:09)
[2022-12-13] MEDS: IVABRADINE HCL 5 MG PO SCH ×2 (08:10→21:13)
[2022-12-13] MEDS ORDERED: Sodium Chloride 0.9% Inhalation Soln 3 ML Neb INH PRN (09:05)
[2022-12-13] MEDS ORDERED: Racepinephrine 2.25% 0.5 ML Neb Soln NEB ONE (09:05)
[2022-12-13] MEDS ORDERED: Calcium Carbonate 500 MG Tab.Chew PO PRN (10:03)
[2022-12-13] MEDS: Furosemide 20 MG Tab PO SCH (11:37)
[2022-12-13] MEDS: [UNRECOGNIZED DRUG - OTHER] INH SCH ×2 (12:54→21:13)
[2022-12-13] MEDS ORDERED: Montelukast 10 MG Tab PO SCH (21:00)
[2022-12-14] MEDS: methylPREDNISolone Sodium Succinate 40 MG/1 ML SDV IVPUSH SCH ×2 (05:56→12:21)
[2022-12-14] MEDS: [UNRECOGNIZED DRUG - OTHER] INH SCH (05:57)
[2022-12-14 06:10] LABS: HEMATOCRIT 35.1 % (36.0-46.0); HEMOGLOBIN 11.2 g/dL (12.0-16.0); LYMPHOCYTES ABSOLUTE AUTO 1.5 K/uL (0.6-2.4); LYMPHOCYTES PERCENT AUTO 7.3 % (16.0-40.0); MEAN CORPUSCULAR HEMOGLOBIN 27.9 pg (27.0-32.0); MEAN CORPUSCULAR HGB CONC 31.9 g/dL (31.0-37.0); MEAN CORPUSCULAR VOLUME 87.5 fL (80.0-98.0); MONOCYTES ABSOLUTE AUTO 0.6 K/uL (0.0-0.8); MONOCYTES PERCENT AUTO 2.8 % (0.0-15.0); NEUTROPHILS ABSOLUTE AUTO 18.4 K/uL (1.4-5.7); NEUTROPHILS PERCENT AUTO 89.9 % (48.0-80.0); NRBC ABSOLUTE 0 K/uL; PLATELET COUNT,PLT 371 K/uL (150-400); RED BLOOD CELL COUNT 4.01 M/uL (4.30-5.90); WHITE BLOOD CELL COUNT,WBC 20.51 K/uL (4.0-11.0)
[2022-12-14 06:42] LABS: CALCIUM 8.8 mg/dL (8.5-10.1); CARBON DIOXIDE,CO2 25.7 mmol/L (21.0-32.0); CREATININE 0.8 mg/dL (0.6-1.0); EST CRCL DRUG DOSING (CG) 78.23 mL/min; POTASSIUM,K 4.8 mmol/L (3.5-5.1)
[2022-12-14] MEDS: Omeprazole 20 MG Cap.CR PO SCH (06:55)
[2022-12-14] MEDS: Levothyroxine 88 MCG Tab PO SCH (06:55)
[2022-12-14] MEDS: Enoxaparin 40 MG/0.4 ML Syringe SUBCUT SCH (09:28)
[2022-12-14] MEDS: Furosemide 40 MG Tab PO SCH (09:29)
[2022-12-14] MEDS: DULoxetine 60 MG Cap PO SCH (09:29)
[2022-12-14] MEDS: buPROPion 150 MG Tab.ER PO SCH (09:29)
[2022-12-14] MEDS: IVABRADINE HCL 5 MG PO SCH (09:49)
[2022-12-14] MEDS: Furosemide 20 MG Tab PO SCH (12:21)
[2022-12-14 13:45] VITALS: BP 148/80; PULSE 76
== END 2022-12-14 12:50 | disposition home or self-care (01) | DRG 141 ==
LOC: MW.ED 15:17 → MW.MS 18:04 → OBSVTOIN 18:04 → MW.MS 12-13 13:31
PROVIDERS: ADMIT Internal Medicine; ATTEND Internal Medicine
DX: J45.901 Unspecified asthma with (acute) exacerbation (principal); Z68.43 Body mass index [BMI] 50.0-59.9, adult; U09.9 Post COVID-19 condition, unspecified; E03.9 Hypothyroidism, unspecified; F32.A Depression, unspecified; K21.9 Gastro-esophageal reflux disease without esophagitis; K59.00 Constipation, unspecified; M79.7 Fibromyalgia; F43.10 Post-traumatic stress disorder, unspecified; E66.9 Obesity, unspecified; G47.33 Obstructive sleep apnea (adult) (pediatric); Z66 Do not resuscitate; F17.210 Nicotine dependence, cigarettes, uncomplicated; Z86.718 Personal history of other venous thrombosis and embolism; I50.9 Heart failure, unspecified; F41.9 Anxiety disorder, unspecified; Z79.51 Long term (current) use of inhaled steroids; Z88.0 Allergy status to penicillin; Z79.899 Other long term (current) drug therapy; Z79.890 Hormone replacement therapy; Z98.890 Other specified postprocedural states; Z90.89 Acquired absence of other organs; Z90.49 Acquired absence of other specified parts of digestive tract
CPT/HCPCS: 36415; 71045; 71045-26; 80048; 80053; 82803; 83735; 85025; 94640; 99222; 99232; 99239; 99291; A9270-GY; J1100; J1650; J2920; J3475; J3490; J7620-GY

== ENCOUNTER 2024-01-28 12:40 | Inpatient (IN) | payer BC ==
[2024-01-28] MEDS: Magnesium Sulfate/Water 2 GM in Premix Bag 1 BAG IV ONE (13:19)
[2024-01-28] MEDS: Albuterol/Ipratropium 3.0-0.5 MG/3 ML Neb Soln NEB ONE ×2 (13:20→15:59)
[2024-01-28] MEDS: methylPREDNISolone Sodium Succinate 125 MG/2 ML SDV IVPUSH ONE (13:20)
[2024-01-28] MEDS: Sodium Chloride 0.9% 2.5 ML Syringe FLUSH PRN (13:20)
[2024-01-28] MEDS: Sodium Chloride 0.9% 10 ML Syringe FLUSH PRN (13:20)
[2024-01-28 13:27] LABS: BASOPHILS ABSOLUTE AUTO 0.04 K/uL (0.00-0.20); BASOPHILS PERCENT AUTO 0.3 % (0.0-1.0); EOSINOPHILS ABSOLUTE AUTO 0.02 K/uL (0.00-0.45); EOSINOPHILS PERCENT AUTO 0.2 % (0.0-6.0); HEMATOCRIT 37.4 % (37.0-47.0); HEMOGLOBIN 12.4 g/dL (12.0-16.0); IMMATURE GRAN ABSOLUTE AUTO 0.13 K/uL (0.00-0.05); LYMPHOCYTES ABSOLUTE AUTO 2.64 K/uL (1.00-4.80); LYMPHOCYTES PERCENT AUTO 20.8 % (24.0-44.0); MEAN CORPUSCULAR HEMOGLOBIN 28.8 pg (28.0-32.0); MEAN CORPUSCULAR HGB CONC 33.2 g/dL (32.0-36.0); MEAN PLATELET VOLUME 9.3 fL (9.4-12.3); MONOCYTES ABSOLUTE AUTO 0.45 K/uL (0.00-0.80); MONOCYTES PERCENT AUTO 3.5 % (0.0-8.0); NEUTROPHILS ABSOLUTE AUTO 9.42 K/uL (1.80-7.70); NEUTROPHILS PERCENT AUTO 74.2 % (41.0-71.0); PLATELET COUNT,PLT 409 K/uL (150-400)
[2024-01-28 13:29] LABS: BASE EXCESS VENOUS 3.6 (-2.0-3.0); PH,VENOUS 7.61 (7.31-7.41)
[2024-01-28] MEDS: Albuterol/Ipratropium 3.0-0.5 MG/3 ML Neb Soln ONE (13:40)
[2024-01-28 14:20] LABS: ALANINE AMINOTRANSFERASE,ALT 59 IU/L (14-63); ALKALINE PHOSPHATASE 87 U/L (46-116); ASPARTATE AMNIOTRANSFERASE,AST 37 IU/L (15-37); BILIRUBIN TOTAL 0.3 mg/dL (0.2-1.0); BLOOD UREA NITROGEN,BUN 11 mg/dL (7.0-18.0); CARBON DIOXIDE,CO2 23.4 mmol/L (21.0-32.0); CHLORIDE,CL 101 mmol/L (98-107); CREATININE 1.1 mg/dL (0.6-1.0); ESTIMATED GFR 62 mL/min (>60); GLUCOSE RANDOM 115 mg/dL (74-106); POTASSIUM,K 3.4 mmol/L (3.5-5.1); PRO B-TYPE NATRIUR PEPT,BNPPRO 260 pg/mL (0-125); PROTEIN TOTAL,TP 8.1 g/dL (6.4-8.2); SODIUM,NA 140 mmol/L (136-145)
[2024-01-28] MEDS: cefTRIAXone 1 GM in Sodium Chloride 0.9% 50 ML IV ONE (15:21)
[2024-01-28] MEDS: Azithromycin 250 MG Tab PO STA (15:21)
[2024-01-28] MEDS ORDERED: Sodium Chloride 0.9% 2.5 ML Syringe FLUSH PRN (16:44)
[2024-01-28] MEDS ORDERED: Sodium Chloride 0.9% 10 ML Syringe FLUSH PRN (16:44)
[2024-01-28] MEDS ORDERED: Ondansetron 4 MG/2 ML SDV IVPUSH PRN (16:44)
[2024-01-28] MEDS: Albuterol/Ipratropium 3.0-0.5 MG/3 ML Neb Soln NEB SCH (18:10)
[2024-01-28] MEDS ORDERED: BUDESONIDE 90 MCG INH SCH ×2 (21:00)
[2024-01-28] MEDS ORDERED: Melatonin 3 MG Tab PO PRN (21:19)
[2024-01-28] MEDS: BUDESONIDE 90 MCG INH SCH (22:01)
[2024-01-28] MEDS: IVABRADINE HCL 5 MG PO SCH (22:03)
[2024-01-28] MEDS: buPROPion 150 MG Tab.ER PO SCH (22:04)
[2024-01-28] MEDS: DULoxetine 60 MG Cap PO SCH (22:04)
[2024-01-28] MEDS: Melatonin 3 MG Tab PO PRN (22:05)
[2024-01-28] MEDS: methylPREDNISolone Sodium Succinate 40 MG/1 ML SDV IVPUSH SCH (22:05)
[2024-01-28] MEDS: Albuterol 0.083% 2.5 MG/3 ML Neb Soln NEB PRN (23:44)
[2024-01-29] MEDS: Calcium Carbonate 500 MG Tab.Chew PO PRN (00:29)
[2024-01-29] MEDS: LORazepam 2 MG/ML SDV IVPUSH PRN (00:44)
[2024-01-29 05:45] LABS: BASOPHILS ABSOLUTE AUTO 0.01 K/uL (0.00-0.20); BASOPHILS PERCENT AUTO 0.1 % (0.0-1.0); HEMATOCRIT 33.7 % (37.0-47.0); IMMATURE GRAN ABSOLUTE AUTO 0.13 K/uL (0.00-0.05); IMMATURE GRAN PERCENT AUTO 0.9 % (0.0-0.4); LYMPHOCYTES ABSOLUTE AUTO 0.99 K/uL (1.00-4.80); MEAN CORPUSCULAR HGB CONC 32.6 g/dL (32.0-36.0); MEAN CORPUSCULAR VOLUME 88.9 fL (83.0-99.0); MEAN PLATELET VOLUME 9.5 fL (9.4-12.3); MONOCYTES PERCENT AUTO 2.1 % (0.0-8.0); NEUTROPHILS ABSOLUTE AUTO 12.71 K/uL (1.80-7.70); NEUTROPHILS PERCENT AUTO 89.9 % (41.0-71.0); PLATELET COUNT,PLT 381 K/uL (150-400); RED BLOOD CELL COUNT 3.79 M/uL (4.10-5.30); WHITE BLOOD CELL COUNT,WBC 14.14 K/uL (3.9-11.3)
[2024-01-29 06:10] LABS: CALCIUM 8.9 mg/dL (8.5-10.1); CARBON DIOXIDE,CO2 26.2 mmol/L (21.0-32.0); CREATININE 0.9 mg/dL (0.6-1.0); EST CRCL DRUG DOSING (CG) 63.24 mL/min; POTASSIUM,K 3.8 mmol/L (3.5-5.1)
[2024-01-29] MEDS: Levothyroxine 88 MCG Tab PO SCH (06:11)
[2024-01-29] MEDS: Furosemide 40 MG Tab PO SCH (08:36)
[2024-01-29] MEDS: Benzonatate 100 MG Cap PO PRN (10:07)
[2024-01-29] MEDS: cefTRIAXone 1 GM in Sodium Chloride 0.9% 50 ML IV SCH (10:08)
[2024-01-29] MEDS ORDERED: methylPREDNISolone Sodium Succinate 40 MG/1 ML SDV IVPUSH SCH (10:30)
[2024-01-29] MEDS: buPROPion 150 MG Tab.ER PO SCH (11:00)
[2024-01-29] MEDS: Azithromycin 500 MG in Sodium Chloride 0.9% 250 ML IV SCH (12:23)
[2024-01-29] MEDS: methylPREDNISolone Sodium Succinate 40 MG/1 ML SDV IVPUSH SCH (17:48)
[2024-01-29] MEDS ORDERED: buPROPion 150 MG Tab.ER PO SCH ×2 (21:00→21:31)
[2024-01-29] MEDS ORDERED: DULoxetine 60 MG Cap PO SCH (21:00)
[2024-01-29] MEDS: Zolpidem Tartrate 5 MG Tablet PO PRN (21:28)
[2024-01-30] MEDS: guaiFENesin 100 MG/5 ML Soln 5 ML UD Cup PO PRN (00:15)
[2024-01-30 06:09] LABS: BASOPHILS ABSOLUTE AUTO 0.02 K/uL (0.00-0.20); BASOPHILS PERCENT AUTO 0.1 % (0.0-1.0); HEMATOCRIT 36.7 % (37.0-47.0); HEMOGLOBIN 11.5 g/dL (12.0-16.0); IMMATURE GRAN ABSOLUTE AUTO 0.27 K/uL (0.00-0.05); IMMATURE GRAN PERCENT AUTO 1.3 % (0.0-0.4); LYMPHOCYTES ABSOLUTE AUTO 1.48 K/uL (1.00-4.80); LYMPHOCYTES PERCENT AUTO 7.2 % (24.0-44.0); MEAN CORPUSCULAR HEMOGLOBIN 28.4 pg (28.0-32.0); MEAN CORPUSCULAR HGB CONC 31.3 g/dL (32.0-36.0); MEAN CORPUSCULAR VOLUME 90.6 fL (83.0-99.0); MEAN PLATELET VOLUME 9.6 fL (9.4-12.3); MONOCYTES ABSOLUTE AUTO 0.85 K/uL (0.00-0.80); MONOCYTES PERCENT AUTO 4.1 % (0.0-8.0); NEUTROPHILS ABSOLUTE AUTO 17.97 K/uL (1.80-7.70); NEUTROPHILS PERCENT AUTO 87.3 % (41.0-71.0); PLATELET COUNT,PLT 368 K/uL (150-400); RED BLOOD CELL COUNT 4.05 M/uL (4.10-5.30); WHITE BLOOD CELL COUNT,WBC 20.59 K/uL (3.9-11.3)
[2024-01-30] MEDS: Levothyroxine 75 MCG Tab PO SCH (06:13)
[2024-01-30 06:31] LABS: CALCIUM 9.7 mg/dL (8.5-10.1); CARBON DIOXIDE,CO2 26.8 mmol/L (21.0-32.0); EST CRCL DRUG DOSING (CG) 56.91 mL/min; POTASSIUM,K 5.2 mmol/L (3.5-5.1)
[2024-01-30] MEDS: Acetaminophen 325 MG Tab PO PRN (07:41)
[2024-01-30] MEDS: OMEPRAZOLE 20 MG PO SCH (08:38)
[2024-01-30] MEDS: Ibuprofen 400 MG Tab PO PRN (12:15)
[2024-01-31 07:36] LABS: HEMATOCRIT 34.8 % (37.0-47.0); HEMOGLOBIN 11.4 g/dL (12.0-16.0); MEAN CORPUSCULAR HEMOGLOBIN 28.9 pg (28.0-32.0); MEAN CORPUSCULAR HGB CONC 32.8 g/dL (32.0-36.0); MEAN CORPUSCULAR VOLUME 88.3 fL (83.0-99.0); PLATELET COUNT,PLT 357 K/uL (150-400); RED BLOOD CELL COUNT 3.94 M/uL (4.10-5.30); WHITE BLOOD CELL COUNT,WBC 17.08 K/uL (3.9-11.3)
[2024-01-31 07:55] LABS: LYMPHOCYTES ABSOLUTE MAN 4.61 K/uL (1.00-4.80); LYMPHOCYTES PERCENT MAN 27 % (24-44); MONOCYTES ABSOLUTE MAN 1.37 K/uL (0.00-0.80); MONOCYTES PERCENT MAN 8 % (0-8); SEG NEUTROPHILS PERCENT MAN 65 % (41-71)
[2024-01-31 07:59] LABS: ALBUMIN 3.4 g/dL (3.4-5.0); BILIRUBIN TOTAL 0.3 mg/dL (0.2-1.0); CALCIUM 9.1 mg/dL (8.5-10.1); CARBON DIOXIDE,CO2 28.6 mmol/L (21.0-32.0); CREATININE 1.2 mg/dL (0.6-1.0); EST CRCL DRUG DOSING (CG) 47.43 mL/min; MAGNESIUM 2.1 mg/dL (1.8-2.4); PROTEIN TOTAL,TP 6.8 g/dL (6.4-8.2)
[2024-01-31] MEDS: methylPREDNISolone Sodium Succinate 40 MG/1 ML SDV IVPUSH SCH (09:40)
[2024-01-31] MEDS: Lisinopril 10 MG Tab PO ONE (11:34)
[2024-02-01 06:58] LABS: HEMOGLOBIN 12.2 g/dL (12.0-16.0); MEAN CORPUSCULAR HEMOGLOBIN 28.4 pg (28.0-32.0); MEAN CORPUSCULAR HGB CONC 32.1 g/dL (32.0-36.0); MEAN CORPUSCULAR VOLUME 88.4 fL (83.0-99.0); MEAN PLATELET VOLUME 9.1 fL (9.4-12.3); PLATELET COUNT,PLT 385 K/uL (150-400); WHITE BLOOD CELL COUNT,WBC 16.54 K/uL (3.9-11.3)
[2024-02-01] MEDS: predniSONE 20 MG Tab PO SCH (07:38)
[2024-02-01 07:39] LABS: A/G RATIO 0.9 (0.9-1.6); ALBUMIN 3.2 g/dL (3.4-5.0); BILIRUBIN TOTAL 0.3 mg/dL (0.2-1.0); CALCIUM 9.3 mg/dL (8.5-10.1); CARBON DIOXIDE,CO2 33.1 mmol/L (21.0-32.0); CREATININE 1.1 mg/dL (0.6-1.0); EST CRCL DRUG DOSING (CG) 51.74 mL/min; POTASSIUM,K 4.2 mmol/L (3.5-5.1); PROTEIN TOTAL,TP 6.8 g/dL (6.4-8.2)
[2024-02-01 08:33] LABS: HYPERSEGMENTED NEUTROPHILS MODERATE; LYMPHOCYTES PERCENT MAN 26 % (24-44); MONOCYTES PERCENT MAN 3 % (0-8); MYELOCYTE ABSOLUTE MAN 0.17; MYELOCYTE PERCENT MAN 1 %; SEG NEUTROPHILS ABSOLUTE MAN 11.58 K/uL (1.80-7.70); SEG NEUTROPHILS PERCENT MAN 70 % (41-71)
[2024-02-01 12:17] VITALS: BP 130/78; PULSE 86
== END 2024-02-01 14:20 | disposition home or self-care (01) | DRG 133 ==
LOC: MW.ED 12:40 → OBSVTOIN 15:21 → MW.MS 15:21
PROVIDERS: ADMIT Family Medicine; ATTEND Family Medicine
PROC: 5A09357 Assistance with Respiratory Ventilation, Less than 24 Consecutive Hours, Continuous Positive Airway Pressure (ICD-10-PCS; principal; 2024-01-28)
DX: J96.01 Acute respiratory failure with hypoxia (principal); J18.9 Pneumonia, unspecified organism; J45.51 Severe persistent asthma with (acute) exacerbation; F41.9 Anxiety disorder, unspecified; E03.9 Hypothyroidism, unspecified; E66.9 Obesity, unspecified; F32.A Depression, unspecified; I11.0 Hypertensive heart disease with heart failure; F43.10 Post-traumatic stress disorder, unspecified; K21.9 Gastro-esophageal reflux disease without esophagitis; I50.9 Heart failure, unspecified; U09.9 Post COVID-19 condition, unspecified; G90.9 Disorder of the autonomic nervous system, unspecified; Z68.43 Body mass index [BMI] 50.0-59.9, adult; Z90.49 Acquired absence of other specified parts of digestive tract; Z88.8 Allergy status to other drugs, medicaments and biological substances; Z90.89 Acquired absence of other organs; Z79.84 Long term (current) use of oral hypoglycemic drugs; Z79.899 Other long term (current) drug therapy
CPT/HCPCS: 36415; 71045; 71045-26; 80048; 80053; 82803; 83735; 83880; 84703; 85025; 94640; 96365; 96375; 99282; 99285-25; A9270-GY; J0456; J0696; J2060; J2919; J3360; J3475; J3490; J7050; J7620-GY